=== PATIENT | female | born 1975 | race Caucasian/White ===

== ENCOUNTER 2017-02-24 18:04 | Emergency (ER) | payer MEDICAID ==
[~2017-02-24] VITALS: Ht 160 cm; Wt 97.5 kg
[~2017-02-24 18:04] MED LIST: ACYCLOVIR 800800 M1 PO; BISOPROLOL FUMAR5 M1; BISOPROLOL FUMAR5 M1 PO; CAPOTEN 50MG TA50 MG PO; CIPROFLOXACIN500 M1 PO; HYDROCHLOROTHIA25 M1 PO; IBUPROFEN 800800 MG PO; LISINOPRIL20 MG; LOVASTATIN 20 M20 MG; NORCO 5-325 TA1 EACH PO; PREDNISONE OR; REFRESH P.M. O3.5 G2 OP; TRAMADOL 50 MG50 MG PO; [UNRECOGNIZED DRUG - REMARK]
[2017-02-24] MEDS ORDERED: LOPRESSOR25 PO (18:32)
[2017-02-24] MEDS ORDERED: IBUPROFEN 600600 M1 PO (21:35)
[2017-02-24] MEDS ORDERED: CYCLOBENZAPRINE10 MG PO (21:35)
[2017-02-24] MEDS ORDERED: NORCO 5-325 TA1 EACH PO (21:35)
[2017-02-24 21:45] VITALS: BP 125/90
== END 2017-02-24 21:46 | disposition home or self-care (01) ==
LOC: M.ERS 18:04
DX: S39.92XA Unspecified injury of lower back, initial encounter (principal); M54.6 Pain in thoracic spine; Z90.710 Acquired absence of both cervix and uterus; Z88.8 Allergy status to other drugs, medicaments and biological substances; W00.1XXA Fall from stairs and steps due to ice and snow, initial encounter; Y93.89 Activity, other specified; Y92.89 Other specified places as the place of occurrence of the external cause; Y99.8 Other external cause status

== ENCOUNTER 2017-07-08 08:28 | Emergency (ER) | payer OTHER, MEDICAID ==
[~2017-07-08] VITALS: Ht 157.5 cm; Wt 96.6 kg
[~2017-07-08 08:28] MED LIST changes: +CYCLOBENZAPRINE10 MG PO; +IBUPROFEN 600600 M1 PO; +LOPRESSOR25 PO
[2017-07-08] MEDS ORDERED: ALDACTONE25 MG PO (08:38)
[2017-07-08] MEDS ORDERED: FISH OIL 1,0001 EAC1 PO (08:39)
[2017-07-08 09:41] LABS: ABSOLUTE BASOPHILS 0.1 thou/uL (0.0-0.2); ABSOLUTE EOSINOPHILS 0.2 thou/uL (0.0-0.7); ABSOLUTE LYMPHOCYTES 3.7 thou/uL (0.8-5.3); ABSOLUTE MONOCYTES 0.8 thou/uL (0.0-1.2); ABSOLUTE NEUTROPHILS 5.8 thou/uL (1.6-8.1); BASOPHILS 0.8 %; EOSINOPHILS 1.6 %; HEMATOCRIT 42.3 % (37.0-47.0); HEMOGLOBIN 14.4 gm/dL (12.0-15.0); LYMPHOCYTES 35.4 %; MCH 31.5 pg (26.0-34.0); MCHC 34.1 g/dL (28.0-37.0); MCV 92.2 fL (80.0-100.0); MONOCYTES 7.2 %; MPV 10.1 fl. (7.2-11.1); NUCLEATED RBCS 0 /100WBC; PLATELET COUNT* 178 thou/uL (150-400); RBC 4.59 mil/uL (4.20-5.00); RDW-CV 13.3 % (10.5-14.5); WBC 10.5 thou/uL (4.0-11.0)
[2017-07-08 09:48] LABS: CALCIUM 9.5 mg/dL (8.5-10.1); CREATININE 0.8 mg/dL (0.6-1.3)
[2017-07-08 10:04] LABS: ALBUMIN 3.5 g/dL (3.4-5.0); TOTAL BILIRUBIN 0.3 mg/dL (<0.1-1.0); TOTAL PROTEIN 7.6 g/dL (6.4-8.2)
[2017-07-08] MEDS ORDERED: PROAIR HFA8.5 GM PO (10:22)
[2017-07-08] MEDS ORDERED: PREDNISONE50 MG PO (10:22)
[2017-07-08] MEDS ORDERED: AMOXICILLIN500 M1 PO (10:22)
[2017-07-08 10:25] LABS: BE -1.6 mmol/L (-2 to +3); PCO2 38.7 mmHg (35.0-45.0); PO2 80.4 mmHg (75.0-100.0); pH 7.392 (7.340-7.450)
[2017-07-08 11:20] VITALS: BP 105/68
== END 2017-07-08 11:20 | disposition home or self-care (01) ==
LOC: M.ERS 08:28
PROVIDERS: Personal Emergency Response Attendant
DX: J40 Bronchitis, not specified as acute or chronic (principal); F17.210 Nicotine dependence, cigarettes, uncomplicated; Z90.710 Acquired absence of both cervix and uterus; Z88.8 Allergy status to other drugs, medicaments and biological substances

== ENCOUNTER 2017-12-25 10:36 | Emergency (ER) | payer OTHER, MEDICAID ==
[~2017-12-25] VITALS: Ht 160 cm; Wt 101.2 kg
[~2017-12-25 10:36] MED LIST changes: +ALDACTONE25 MG PO; +AMOXICILLIN500 M1 PO; +FISH OIL 1,0001 EAC1 PO; +PREDNISONE50 MG PO; +PROAIR HFA8.5 GM PO
[2017-12-25 11:02] LABS: ABSOLUTE BASOPHILS 0.1 thou/uL (0.0-0.2); ABSOLUTE EOSINOPHILS 0.1 thou/uL (0.0-0.7); ABSOLUTE LYMPHOCYTES 3.4 thou/uL (0.8-5.3); ABSOLUTE MONOCYTES 0.6 thou/uL (0.0-1.2); ABSOLUTE NEUTROPHILS 5.1 thou/uL (1.6-8.1); BASOPHILS 0.9 %; EOSINOPHILS 1.5 %; HEMATOCRIT 44.1 % (37.0-47.0); LYMPHOCYTES 36.2 %; MCH 30.7 pg (26.0-34.0); MCV 90.3 fL (80.0-100.0); MONOCYTES 6.4 %; MPV 9.7 fl. (7.2-11.1); NUCLEATED RBCS 0 /100WBC; PLATELET COUNT* 219 thou/uL (150-400); RBC 4.88 mil/uL (4.20-5.00); RDW-CV 14.1 % (10.5-14.5); WBC 9.3 thou/uL (4.0-11.0)
[2017-12-25 11:09] LABS: ANION GAP 7 mmol/L (7-16); BUN 15 mg/dL (7-18); CALCIUM 8.9 mg/dL (8.5-10.1); CHLORIDE 102 mmol/L (98-107); CO2 28 mmol/L (21-32); CREATININE 0.8 mg/dL (0.6-1.3); GLUCOSE 93 mg/dL (70-99); POTASSIUM 4.2 mmol/L (3.5-5.1); SODIUM 137 mmol/L (136-145)
[2017-12-25 11:20] LABS: ALBUMIN 3.6 g/dL (3.4-5.0); ALKALINE PHOSPHATASE 97 U/L (46-116); LIPASE 244 U/L (73-393); MAGNESIUM 1.9 mg/dL (1.8-2.4); NT-PRO BRAIN NAT PEPTIDE 18 pg/mL (<300); SGOT 21 U/L (15-37); SGPT 39 U/L (30-65); TOTAL BILIRUBIN 0.3 mg/dL (<0.1-1.0); TOTAL PROTEIN 7.7 g/dL (6.4-8.2); TROPONIN-I LEVEL <0.06 ng/mL (<0.06)
[2017-12-25] MEDS ORDERED: ZPAK PO (12:17)
[2017-12-25 12:24] VITALS: BP 104/80
--- NOTE | 2017-12-25 16:39 | EKG ---
[place] [address] ELECTROCARDIOGRAM REPORT Name: LAURAESTELA Sasha Room: [facility] Jacqui#: [id number] Admission: 12/25/17 Attend Phys: Discharge: 12/25/17 Date of : 79 Report #: [id number] THIS REPORT FOR: //name// [facility] ED Test Date: 2017-12-25 Test Time: 10:42:33 Pat Name: ESTELA SANCHEZ Department: Room: Gender: F Law Enforcement Officer: Lew GUPTA : 1975 Requested By: Raz Smith Order Number: [id number] MD: Gerry Iqbal Measurements Intervals [place] Rate: 96 P: -1 VT: 121 QRS: 3 QRSD: 101 T: 17 QT: 351 QTc: 444 Interpretive Statements Sinus rhythm RSR' in V1 or V2, right VCD or RVH Compared to ECG 07/10/2014 21:01:35 rate slowed Electronically Signed On 12-25-2017 16:39:06 ELEVATOR OPERATOR by Gerry Iqbal [email or web address] <ELECTRONICALLY SIGNED> By: Gerry Iqbal MD, [facility] 12/25/17 1639 1042 [id number] Gerry Iqbal MD, FACC /EPI
== END 2017-12-25 12:25 | disposition left against medical advice (07) ==
LOC: M.ERS 10:36
PROVIDERS: Emergency Medicine Emergency Medical Services
DX: J18.9 Pneumonia, unspecified organism (principal); F17.210 Nicotine dependence, cigarettes, uncomplicated; Z88.8 Allergy status to other drugs, medicaments and biological substances; Z90.710 Acquired absence of both cervix and uterus; Z98.890 Other specified postprocedural states

== ENCOUNTER 2018-04-27 12:26 | Inpatient (IN) | payer OTHER, MEDICAID ==
[~2018-04-27] VITALS: Ht 160 cm; Wt 118.8 kg
[~2018-04-27 12:26] MED LIST changes: +ZPAK PO
[2018-04-27 12:33] VITALS: BP 122/80
[2018-04-27 12:58] LABS: URINE BILIRUBIN NEGATIVE (Negative); URINE BLOOD 2+ (Negative); URINE CLARITY SL CLOUDY; URINE COLOR YELLOW; URINE GLUCOSE-RANDOM NEGATIVE (Negative); URINE KETONES NEGATIVE (Negative); URINE LEUKOCYTES-REFLEX 2+ (Negative); URINE NITRITE-REFLEX POSITIVE (Negative); URINE PROTEIN TRACE (Negative); URINE SPECIFIC GRAVITY >= 1.030 (1.005-1.030); URINE UROBILINOGEN 0.2 E.U./dl (0.2-1.0)
[2018-04-27 13:02] LABS: ABSOLUTE BASOPHILS 0.1 thou/uL (0.0-0.2); ABSOLUTE EOSINOPHILS 0.2 thou/uL (0.0-0.7); ABSOLUTE LYMPHOCYTES 2.6 thou/uL (0.8-5.3); ABSOLUTE MONOCYTES 0.6 thou/uL (0.0-1.2); ABSOLUTE NEUTROPHILS 5.8 thou/uL (1.6-8.1); BASOPHILS 1.1 %; EOSINOPHILS 1.7 %; HEMATOCRIT 42.4 % (37.0-47.0); HEMOGLOBIN 14.8 gm/dL (12.0-15.0); LYMPHOCYTES 28.1 %; MCH 31.8 pg (26.0-34.0); MCHC 34.8 g/dL (28.0-37.0); MCV 91.2 fL (80.0-100.0); MONOCYTES 6.6 %; MPV 9.9 fl. (7.2-11.1); NUCLEATED RBCS 0 /100WBC; PLATELET COUNT* 199 thou/uL (150-400); POLYS 62.5 %; RBC 4.65 mil/uL (4.20-5.00); RDW-CV 13.4 % (10.5-14.5); WBC 9.4 thou/uL (4.0-11.0)
[2018-04-27 13:18] LABS: ALBUMIN 3.6 g/dL (3.4-5.0); ALKALINE PHOSPHATASE 115 U/L (46-116); ANION GAP 8 mmol/L (7-16); BUN 14 mg/dL (7-18); CHLORIDE 101 mmol/L (98-107); CO2 28 mmol/L (21-32); CREATININE 1.2 mg/dL (0.6-1.3); GLUCOSE 123 mg/dL (70-99); LIPASE 123 U/L (73-393); POTASSIUM 3.7 mmol/L (3.5-5.1); SGOT 27 U/L (15-37); SGPT 53 U/L (30-65); SODIUM 137 mmol/L (136-145); TOTAL BILIRUBIN 0.2 mg/dL (<0.1-1.0); TOTAL PROTEIN 7.6 g/dL (6.4-8.2); TROPONIN-I LEVEL <0.06 ng/mL (<0.06)
[2018-04-27 13:21] LABS: SQUAMOUS >10 Many /LPF (0-3)
[2018-04-27 13:23] LABS: BACTERIA-REFLEX >30 Many /HPF (None Seen); URINE RBC 3-10 Few /HPF (0-2); URINE WBC-REFLEX 6-15 Few /HPF (0-5)
[2018-04-27 13:24] LABS: CASTS None Seen /LPF (None Seen); CRYSTALS None Seen /LPF (None Seen); MUCUS 0-3 Light strn/LPF (None Seen)
[2018-04-27 16:12] VITALS: BP 141/88
[2018-04-27 16:20] VITALS: BP 134/77
[2018-04-27 19:30] VITALS: BP 108/73
[2018-04-27 22:30] VITALS: BP 135/76
[2018-04-28] VITALS: BP 95/57
[2018-04-28 04:54] VITALS: BP 98/60
[2018-04-28 06:25] LABS: CHOLESTEROL 211 mg/dL (<200); HDL CHOLESTEROL 41 mg/dL (>40); LDL CHOLESTEROL 147 mg/dL (<100); TC:HDL 5.1 Ratio (Not establshd); TRIGLYCERIDE 116 mg/dL (<150); TROPONIN-I LEVEL <0.06 ng/mL (<0.06); VLDL 23 mg/dL (<40)
[2018-04-28 06:26] LABS: SERUM ASSESSMENT Clear
[2018-04-28 07:12] VITALS: BP 101/55
--- NOTE | 2018-04-28 09:17 | EKG ---
[place] [address] ELECTROCARDIOGRAM REPORT Name: LAURAMay Room: [address] ADM IN M.R.#: [id number] Admission: 04/27/18 Attend Phys: Vidya Wang MD Discharge: Date of : 79 Report #: [id number] THIS REPORT FOR: //name// [facility] Test Date: 2018-04-28 Test Time: 00:26:42 Pat Name: ESTELA SANCHEZ Department: Room: [address] Gender: F General Production Worker: ALIA : 1975 Requested By: Vidya Wang Order Number: [id number] Marlen MD: Gerry Iqbal Measurements Intervals [place] Rate: 102 P: 40 [place]: 136 QRS: -2 QRSD: 100 T: 22 QT: 341 QTc: 445 Interpretive Statements Sinus tachycardia Baseline wander in lead(s) V4,V5 Compared to ECG 12/25/2017 10:42:33 Sinus rhythm no longer present Electronically Signed On 04-28-2018 9:16:57 CDT by Gerry Iqbal [email or web address] <ELECTRONICALLY SIGNED> By: Gerry Iqbal MD, [facility] 04/28/18 0916 0026 0026 Gerry Iqbal MD, [facility] /EPI
[2018-04-28 12:36] VITALS: BP 111/72
[2018-04-28 15:35] VITALS: BP 120/84
--- NOTE | 2018-04-28 16:15 | 2DMMODE ---
[place] [address] 2 D/M-MODE ECHOCARDIOGRAM Name: LAURA Room: [address] IN [place].#: [id number] Admission: 04/27/18 Attend Phys: Vidya Wang, Discharge: Date of : 79 Date of Service: 04/28/18 1615 Report #: [id number] THIS REPORT FOR: //name// APPROVED REPORT Study performed: 04/28/2018 13:33:34 EXAM: Comprehensive 2D, Doppler, and color-flow Echocardiogram Patient Location: In-Patient Room #: [facility] Status: routine BSA: 2.12 HR: 115 bpm BP: 111/72 mmHg Rhythm: NSR Other Information Study Quality: Fair Indications Chest Pain 2D Dimensions IVSd: 13.73 (7-11mm) LVOT Diam: 19.69 (18-24mm) LVDd: 43.54 mm PWd: 12.90 (7-11mm) Ascending Ao: 29.65 (22-36mm) LVDs: 21.96 (25-40mm) Aortic Root: 28.64 mm Volumes Left Atrial Volume (Systole) LA ESV Index: 18.50 mL/m2 Aortic Valve AoV Peak Ede.: 2.02 m/s AO Peak Gr.: 16.37 mmHg LVOT Max P.04 mmHg AO Mean Gr.: 8.58 mmHg LVOT Mean P.66 mmHg LVOT Max V: 1.58 m/s AO V2 VTI: 27.87 cm LVOT Mean V: 0.99 m/s MIKEL (VTI): 2.46 cm2 LVOT V1 VTI: 22.55 cm Mitral Valve E/A Ratio: 1.40 MV Decel. Time: 163.68 ms MV E Max Ede.: 1.29 m/[place] [address] 2 D/M-MODE ECHOCARDIOGRAM Name: Room: [address] .R.#: [id number] Admission: 04/27/18 Attend Phys: Vidya Wang, Discharge: Date of : 79 Date of Service: 04/28/18 1615 Report #: [id number] PHT: 47.47 ms MVA (PHT): 4.63 cm2 TDI E/Lateral E': 6.79 E/Medial E': 8.06 Medial E' Ede.: 0.16 m/s Lateral E' Ede.: 0.19 m/s Pulmonary Valve PV Peak Ede.: 1.12 m/s PV Peak Gr.: 5.06 mmHg Left Ventricle The left ventricle is normal size. There is normal LV segmental wall motion. Mild concentric left ventricular hypertrophy. Left ventricular systolic function is normal. The left ventricular ejection fraction is within the normal range. LVEF is 65-70%. The left ventricular diastolic function is normal. Right Ventricle The right ventricle is normal size. The right ventricular systolic function is normal. Atria The left atrium size is normal. The right atrium size is normal. Aortic Valve The aortic valve is normal in structure. No aortic regurgitation is present. There is no aortic valvular stenosis. Mitral Valve The mitral valve is normal in structure. There is no mitral valve regurgitation noted. No evidence of mitral valve stenosis. Tricuspid Valve The tricuspid valve is normal in structure. Unable to assess PA pressure. Trace tricuspid regurgitation. Pulmonic Valve Pulmonic valve is not well visualized. There is no pulmonic valvular regurgitation. Great Vessels The aortic root is normal in size. IVC [place] [address] 2 D/M-MODE ECHOCARDIOGRAM Name: Room: [address] [place] [facility]#: [id number] Admission: 04/27/18 Attend Phys: Vidya Wang, Discharge: Date of : 79 Date of Service: 04/28/18 1615 Report #: [id number] Pericardium There is no pericardial effusion. <Conclusion> Mild concentric left ventricular hypertrophy. LVEF is 65-70%. <ELECTRONICALLY SIGNED> By: Gerry Iqbal MD, FACC 04/28/18 1615 1615 Gerry Iqbal MD, FAC /INF
[2018-04-28 20:20] VITALS: BP 123/64
[2018-04-29 04:16] VITALS: BP 112/57
[2018-04-29 05:11] LABS: CALCIUM 8.4 mg/dL (8.5-10.1); CREATININE 1.3 mg/dL (0.6-1.3); POTASSIUM 3.6 mmol/L (3.5-5.1)
[2018-04-29 06:57] LABS: HEMATOCRIT 34.8 % (37.0-47.0); HEMOGLOBIN 11.8 gm/dL (12.0-15.0); MCH 31.2 pg (26.0-34.0); MCV 91.8 fL (80.0-100.0); MPV 10.8 fl. (7.2-11.1); RBC 3.79 mil/uL (4.20-5.00); RDW-CV 12.9 % (10.5-14.5); WBC 11.1 thou/uL (4.0-11.0)
[2018-04-29 07:30] VITALS: BP 125/78
[2018-04-29 09:00] VITALS: BP 112/57
[2018-04-29 13:44] VITALS: BP 113/63
[2018-04-29 17:23] VITALS: BP 101/72
[2018-04-29 20:00] VITALS: BP 101/62
[2018-04-30 00:46] VITALS: BP 105/67
[2018-04-30 03:43] VITALS: BP 92/63
[2018-04-30 04:06] LABS: HEMOGLOBIN 10.4 gm/dL (12.0-15.0); MCH 30.9 pg (26.0-34.0); MCHC 33.7 g/dL (28.0-37.0); MCV 91.7 fL (80.0-100.0); MPV 10.6 fl. (7.2-11.1); RBC 3.38 mil/uL (4.20-5.00); WBC 9.3 thou/uL (4.0-11.0)
[2018-04-30 04:16] LABS: CALCIUM 7.8 mg/dL (8.5-10.1); POTASSIUM 3.9 mmol/L (3.5-5.1)
[2018-04-30 07:15] VITALS: BP 100/72
--- NOTE | 2018-04-30 11:13 | OP ---
[facility] [address] [place] [address] OPERATIVE REPORT Name: LAURAMay Room: [address] IN M.R.#: [id number] Admission: 04/27/18 Attend Phys: Vidya Wang MD Discharge: Date of : 79 Report #: [id number] THIS REPORT FOR: //name// CC: [facility] physician/PCP Vidya Wang SURGEON: Farooq Kidd M.D. PREOPERATIVE DIAGNOSIS: Left ureteral stone with sepsis. POSTOPERATIVE DIAGNOSIS: Left ureteral stone with sepsis. PROCEDURE: Panendoscopy and cystoscopy, left retrograde pyelogram and left double-J stent placement. COMPLICATIONS: No complications. INDICATIONS: This is a 42-year-old white female who came in with left flank pain. She did run a low-grade fever the night of admission to 100.0. She then did later spike a fever to 102 degrees last night. She has also been tachycardic and pulses in the 120s and then when she was induced with anesthesia, it went up to 132. She has a proximal left ureteral stone and also left lower pole stones. She and her family were thoroughly informed that if she has evidence of infection that we would only put in a ureteral stent. They understand there is also risk of bleeding, infection and other procedures, cardiovascular and pulmonary complications and wished to proceed. DESCRIPTION OF PROCEDURE: Informed consent was obtained. The patient was prepped and draped in the dorsal lithotomy position. She had already been on Rocephin preoperatively. Cystoscopy was carried out. No abnormalities could be seen. Left retrograde pyelogram was performed. The distal ureter was normal. However, she had a filling defect just below the UPJ and then what looked to be some other filling defect up in the renal pelvis, probably consistent with mucus or infection. A 6 x 26 contour stent was then placed, showing good curl in the kidney and good curl in the bladder. There was a hydronephrotic drip of purulent-looking material. She has already had a urine culture sent, so we did not send another urine culture. She has also had blood cultures, which were all pending. The patient tolerated this well. Her pulse at the end of the case was 110, although it is 132 upon induction. The plan will be for her to resolve her sepsis and then go home on oral antibiotics once the cultures are done and then at a later date, in 10-14 days, we will plan on ureteroscopy with laser of stones. <ELECTRONICALLY SIGNED> By: Wil Cody MD 04/30/18 1113 1137 [id number] Kidd MD /nt
[2018-04-30 12:00] VITALS: BP 106/64
[2018-04-30 16:00] VITALS: BP 111/69
[2018-04-30 20:00] VITALS: BP 118/79
[2018-05-01 00:27] VITALS: BP 112/68
[2018-05-01 04:12] LABS: HEMATOCRIT 29.4 % (37.0-47.0); HEMOGLOBIN 10.1 gm/dL (12.0-15.0); MCH 31.6 pg (26.0-34.0); MCHC 34.2 g/dL (28.0-37.0); MCV 92.5 fL (80.0-100.0); MPV 10.6 fl. (7.2-11.1); RBC 3.18 mil/uL (4.20-5.00); RDW-CV 13.2 % (10.5-14.5); WBC 7.6 thou/uL (4.0-11.0)
[2018-05-01 04:14] LABS: CALCIUM 8.2 mg/dL (8.5-10.1); MAGNESIUM 1.9 mg/dL (1.8-2.4); POTASSIUM 3.5 mmol/L (3.5-5.1)
[2018-05-01 05:05] VITALS: BP 115/69
[2018-05-01 07:40] VITALS: BP 152/62
[2018-05-01] MEDS ORDERED: LEVSIN0.125 MG PO (10:55)
[2018-05-01] MEDS ORDERED: FLOMAX0.4 MG PO (10:55)
[2018-05-01] MEDS ORDERED: HYDROCODON-ACE1 EAC7 PO (10:55)
[2018-05-01] MEDS ORDERED: LIDOPATCH1 EACH TOP (10:55)
[2018-05-01] MEDS ORDERED: TRAMADOL 50 MG50 MG PO (10:55)
[2018-05-01] MEDS ORDERED: CEFUROXIME500 MG PO (11:01)
[2018-05-01 11:16] VITALS: BP 152/62
[2018-05-01 11:53] VITALS: BP 152/62
== END 2018-05-01 11:58 | disposition home or self-care (01) | DRG 854 ==
LOC: M.ERS 12:26 → M.TBA-ER 14:29 → M.3W 14:29
PROVIDERS: Internal Medicine; Physician Assistant; Urology; ADMIT Internal Medicine
PROC: 0T778DZ Dilation of Left Ureter with Intraluminal Device, Via Natural or Artificial Opening Endoscopic (ICD-10-PCS; principal; 2018-04-29)
PROC: BT1F1ZZ Fluoroscopy of Left Kidney, Ureter and Bladder using Low Osmolar Contrast (ICD-10-PCS; principal; 2018-04-29)
DX: A41.9 Sepsis, unspecified organism (principal); N13.6 Pyonephrosis; I47.1 Supraventricular tachycardia; A59.9 Trichomoniasis, unspecified; F17.210 Nicotine dependence, cigarettes, uncomplicated; I10 Essential (primary) hypertension; N28.9 Disorder of kidney and ureter, unspecified; Z79.899 Other long term (current) drug therapy; Z90.710 Acquired absence of both cervix and uterus; Z88.8 Allergy status to other drugs, medicaments and biological substances

== ENCOUNTER → 2018-05-07 | Outpatient (CLI) | payer MEDICAID ==
[~2018-05-07] MED LIST changes: +CEFUROXIME500 MG PO; +FLOMAX0.4 MG PO; +HYDROCODON-ACE1 EAC7 PO; +LEVSIN0.125 MG PO; +LIDOPATCH1 EACH TOP
[2018-05-07 09:11] LABS: ABSOLUTE BASOPHILS 0.1 thou/uL (0.0-0.2); ABSOLUTE EOSINOPHILS 0.2 thou/uL (0.0-0.7); ABSOLUTE LYMPHOCYTES 2.4 thou/uL (0.8-5.3); ABSOLUTE MONOCYTES 0.4 thou/uL (0.0-1.2); ABSOLUTE NEUTROPHILS 4.7 thou/uL (1.6-8.1); EOSINOPHILS 2.5 %; HEMATOCRIT 42.2 % (37.0-47.0); HEMOGLOBIN 14.1 gm/dL (12.0-15.0); LYMPHOCYTES 31.2 %; MCH 30.6 pg (26.0-34.0); MCHC 33.4 g/dL (28.0-37.0); MCV 91.6 fL (80.0-100.0); MONOCYTES 4.6 %; MPV 9.7 fl. (7.2-11.1); NUCLEATED RBCS 0 /100WBC; PLATELET COUNT* 286 thou/uL (150-400); POLYS 60.7 %; RBC 4.61 mil/uL (4.20-5.00); RDW-CV 13.1 % (10.5-14.5); WBC 7.7 thou/uL (4.0-11.0)
[2018-05-07 09:23] LABS: CALCIUM 9.2 mg/dL (8.5-10.1); CREATININE 1.1 mg/dL (0.6-1.3); POTASSIUM 3.9 mmol/L (3.5-5.1)
== END ==
LOC: M.LAB 08:40
PROVIDERS: Urology
DX: N20.0 Calculus of kidney (principal)

== ENCOUNTER → 2018-05-20 | Day surgery (SDC) | payer OTHER ==
[~2018-05-20] MED LIST changes: +CEFUROXIME250 MG PO
--- NOTE | ~2018-05-20 | OP ---
[address] [address] OPERATIVE REPORT Name: SANCHEZ Room: [facility] Jacqui#: [id number] Admission: 05/20/18 Attend Phys: Bárbara Valencia Discharge: Date of : 79 Report #: [id number] THIS REPORT FOR: //name// CC: Farooq [facility] DATE OF SERVICE: 05/20/2018 SURGEON: Farooq Kidd MD. PREOPERATIVE DIAGNOSIS: Left ureteral stone after a sepsis episode. POSTOPERATIVE DIAGNOSIS: Left ureteral stone after a sepsis episode. PROCEDURE: Left retrograde pyelogram, left ureteroscopy, holmium laser stone extraction of stone in double-J stent and removal of double-J stent. COMPLICATIONS: None. INDICATIONS: This is a 42-year-old white female who came in with a history of sepsis and a stone approximately 2 weeks ago. She had a stent placed at that time and comes in now for removal of stone. She was given options of treatment and wished to have ureteroscopy. She understands risk of bleeding, infection, another procedure, cardiovascular and pulmonary complications and wished to proceed. She understands the stent needs to be removed in approximately 7-10 days. DESCRIPTION OF PROCEDURE: Informed consent was obtained. The patient was sterilely prepped and draped in dorsal lithotomy position and given preoperative antibiotics. Cystoscopy was carried out. No abnormalities seen in the bladder. Stent was removed. Retrograde pyelogram was performed showing no abnormalities. A sensor wire and ZIPwire were used as safety wires. The 12/31 x 36 ureteral access sheath was placed without problems to just into the ureteropelvic junction. Flexible ureteroscopy was carried out. There were two small stones in the lower most lucho and then another approximately 8-9 mm stone, where I had to reposition those with some difficulty though using the wire basket up into the upper pole lucho, I was able to get that done and then broke the stones up progressively into small 2 and 3 mm pieces, all of which were extracted. Then, a thorough search was done all the calices. No other stone fragments could be seen other than ones that are 1 mm or less. There is no evidence of inadvertent injury to the ureter. A ureteral access sheath was backed out under vision and then, a 4.8 x 28 stent was then placed with good curl in the kidney and good curl in the bladder. The patient tolerated procedure well and taken to [place] [address] OPERATIVE REPORT Name: Room: [facility] Jacqui#: [id number] Admission: 05/20/18 Attend Phys: Bárbara Valencia Discharge: Date of : 79 Report #: [id number] Plan will be to remove this in 7-10 days. By: [id number] Kidd MD /nt
[2018-05-23 08:08] LABS: STONE CA OXALATE MONOHYDRATE 80 % (()); STONE CALCIUM PHOSPHATE 20 % (()); STONE COLOR Brown (()); STONE COMMENT Note: (())
== END | disposition home or self-care (01) ==
LOC: M.SUR 07:13
PROVIDERS: Urology
DX: N20.1 Calculus of ureter (principal)